=== PATIENT | male | born 1980 | race Caucasian/White ===

== ENCOUNTER 2020-11-22 09:39 | Emergency (ER) | payer MEDICAID ==
[2020-11-22 09:44] VITALS: BP 147/75; PULSE 63; TEMP 98.3
--- NOTE | 2020-11-22 10:16 | ED ---
General Adult HPI - General Chief complaint: Upper Respiratory Infection Stated complaint: LOST OF TASTE AND SMELL Time Seen by Provider: 11/22/20 10:04 Source: patient Mode of arrival: ambulatory Limitations: no limitations - History of Present Illness Initial comments: Patient is a 40-year-old male without any significant past medical history who presents to the emergency room for a chief complaint of "feeling crummy." Patient states that since yesterday he just hasn't felt well since yesterday. He also started to notice that his taste and smell has been decreased. Patient states his is and is a nurse and is at the hospital for an ultrasound. Patient states that his wanted him to be evaluated in the ER since they were already here. He wants to be tested for Covid. He admits to the runny nose, as well as fatigue. He denies cough or shortness of breath. Patient has no other complaints at this time including shortness of breath, chest pain, abdominal pain, nausea or vomiting, headache, or visual changes. - Related Data Home Medications Medication Instructions Recorded Confirmed No Known Home Medications 11/22/20 11/22/20 Allergies Allergy/AdvReac Type Severity Reaction Status Date / Time No Known Allergies Allergy Verified 11/22/20 11:16 Review of Systems ROS Statement: Those systems with pertinent positive or pertinent negative responses have been documented in the HPI. ROS Other: All systems not noted in ROS Statement are negative. Past Medical History Past Medical History: No Reported History History of Any Multi-Drug Resistant Organisms: None Reported Past Surgical History: No Surgical Hx Reported Past Psychological History: No Psychological Hx Reported Smoking Status: Never smoker Past Alcohol Use History: Occasional Past Drug Use History: Marijuana General Exam Limitations: no limitations General appearance: alert, in no apparent distress Head exam: Present: atraumatic, normocephalic, normal inspection Eye exam: Present: normal appearance, PERRL, EOMI. Absent: scleral icterus, conjunctival injection, periorbital swelling ENT exam: Present: normal exam, mucous membranes moist Neck exam: Present: normal inspection, full ROM. Absent: tenderness, meningismus, lymphadenopathy Respiratory exam: Present: normal lung sounds bilaterally. Absent: respiratory distress, wheezes, rales, rhonchi, stridor Cardiovascular Exam: Present: regular rate, normal rhythm, normal heart sounds. Absent: systolic murmur, diastolic murmur, rubs, gallop, clicks GI/Abdominal exam: Present: soft, normal bowel sounds. Absent: distended, tenderness, guarding, rebound, rigid Neurological exam: Present: alert Course Vital Signs 11/22/20 11/22/20 09:41 10:30 Temperature 98.3 F Pulse Rate 63 Respiratory 20 18 Rate Blood Pressure 147/75 O2 Sat by Pulse 99 Oximetry Medical Decision Making - Medical Decision Making Patient is cold and positive. Vitals are stable. Oxygen saturation 99%.He can shortness of breath. Patient refused chest x-ray stating he does not have a cough and does not want this performed. At this time I did offer to wait patient to see if he meets for the BMI criteria however he does not want the antibody treatment. At this time vision and be discharged home in stable condition. He should return to the emergency room for any worsening symptoms. I did discuss quarantine. - Lab Data Lab Results 11/22/20 Range/Units 10:29 Coronavirus (PCR) Detected A (Not Detectd) Disposition Clinical Impression: COVID-19 Disposition: HOME SELF-CARE Condition: Good Instructions (If sedation given, give patient instructions): Coronavirus Disease 2019 (COVID-19) Additional Instructions: Please quarantine for at least 10 days as long as symptoms are improving and he no longer have fevers. Follow-up with your doctor. Take [id number] vitamins. Drink plenty of fluids. Take Motrin and Tylenol for fever. Return to the emergency room for any worsening symptoms including worsening shortness of breath. Is patient prescribed a controlled substance at d/c from ED?: No Referrals: Mario Ybarra [Primary Care Provider] - 1-2 days Time of Disposition: 11:28
[2020-11-22 10:31] VITALS: RESP 18
== END 2020-11-22 11:48 | disposition home or self-care (01) ==
LOC: EC 09:39
DX: U07.1 COVID-19 (principal)
CPT/HCPCS: 87635; 99283

== ENCOUNTER → 2024-01-07 | Outpatient (CLI) | payer BC ==
--- NOTE | 2024-01-07 09:15 | US ---
EXAMINATION TYPE: US liver DATE OF EXAM: 01/07/2024 COMPARISON: NONE CLINICAL INDICATION: Male, 43 years old with history of R74.8 ABNORMAL LEVELS OF OTHER SERUM ENZYMES; LFTs TECHNIQUE: Multiple sonographic images of the right upper quadrant are obtained. FINDINGS: EXAM MEASUREMENTS: bryant Length: 17.7 cm Gallbladder Wall: 0.2 cm CBD: 0.4 cm Right Kidney: 11.2x7.9x6.5 cm MARBLE RUBBER NOTES: Pancreas: Tail obscured by overlying bowel gas Liver: increased size, echogenicity, and attenuation. Area of focal fatty sparring adjacent to GB Gallbladder: wnl Evidence for sonographic Prince's sign: No CBD: wnl Right Kidney: No hydronephrosis or masses seen exam slightly limited by bowel gas and body habitus IMPRESSION: 1. No evidence for acute process. 2. Hepatic steatosis with focal fatty sparing.
== END | disposition home or self-care (01) ==
LOC: RADUSWWP 06:56
PROVIDERS: ATTEND Family Medicine
DX: K76.0 Fatty (change of) liver, not elsewhere classified (principal); R74.8 Abnormal levels of other serum enzymes
CPT/HCPCS: 76705

== ENCOUNTER 2024-02-02 19:15 | Emergency (ER) | payer BC ==
[2024-02-02 20:36] VITALS: RESP 18
[2024-02-02] MEDS: ACETAMINOPHEN TAB 500 MG TAB PO STA (21:22)
[2024-02-02] MEDS: KETOROLAC 15 MG/ML 1 ML VIAL IVP STA (21:23)
--- NOTE | 2024-02-02 22:14 | ED ---
General Adult HPI - General Chief complaint: Wound/Laceration Stated complaint: Fall, laceration on R cheek Time Seen by Provider: 02/02/24 19:31 Source: patient, RN notes reviewed Mode of arrival: ambulatory Limitations: no limitations - History of Present Illness Initial comments: 44-year-old male presenting to the ED with complaints of laceration. Patient states he was going up the wooden stairs when he tripped on the last stair causing him to fall forward and hit the paneling on the wall with his right cheek. There is no LOC at this time. Patient is not on blood thinners or baby aspirin. No other injuries at this time. No other complaints. Tetanus status up-to-date. - Related Data Home Medications Medication Instructions Recorded Confirmed No Known Home Medications 11/22/20 11/22/20 Allergies Allergy/AdvReac Type Severity Reaction Status Date / Time No Known Allergies Allergy Verified 02/02/24 19:20 Review of Systems ROS Statement: Those systems with pertinent positive or pertinent negative responses have been documented in the HPI. ROS Other: All systems not noted in ROS Statement are negative. Past Medical History Past Medical History: No Reported History Additional Past Medical History / Comment(s): gout History of Any Multi-Drug Resistant Organisms: None Reported Past Surgical History: No Surgical Hx Reported Past Psychological History: No Psychological Hx Reported Smoking Status: Never smoker Past Alcohol Use History: Occasional Past Drug Use History: Marijuana General Exam Limitations: no limitations General appearance: alert, in no apparent distress Head exam: Present: other (Ecchymosis over the right cheek with approximately 4 cm laceration.) Eye exam: Present: normal appearance Neck exam: Present: normal inspection, other (No midline cervical spinal tenderness to palpation.) Respiratory exam: Present: normal lung sounds bilaterally Cardiovascular Exam: Present: regular rate GI/Abdominal exam: Present: soft Extremities exam: Present: normal inspection Back exam: Present: normal inspection Neurological exam: Present: alert, oriented X3 Skin exam: Present: warm, dry Course Vital Signs 02/02/24 19:18 Temperature 98.5 F Pulse Rate 79 Respiratory 18 Rate Blood Pressure 179/92 O2 Sat by Pulse 96 Oximetry Procedures - Laceration Laceration #1 Site: face Size (cm): 4 Description: linear Depth: simple, single layer Anesthetic Used: lidocaine 1%, with epi Anesthesia Technique: local infiltration Amount (mls): 3 Pre-repair: wound explored, irrigated extensively, deep structures intact Type of Sutures: nylon Size of Sutures: 5-0 Number of Sutures: 11 Technique: simple, interrupted Patient Tolerated Procedure: well, no complications Medical Decision Making - Medical Decision Making Was pt. sent in by a medical professional or institution (, RADHA, TAILOR APPRENTICE, urgent care, hospital, or residential...) When possible be specific @ -No Did you speak to anyone other than the patient for history (EMS, parent, family, police, friend...)? What history was obtained from this source @ -No Did you review nursing and triage notes (agree or disagree)? Why? @ -I reviewed and agree with nursing and triage notes Were old charts reviewed (outside hosp., previous admission, EMS record, old EKG, old radiological studies, urgent care reports/EKG's, residential records)? Report findings @ -No old charts were reviewed Differential Diagnosis (chest pain, altered mental status, abdominal pain women, abdominal pain men, vaginal bleeding, weakness, fever, dyspnea, syncope, headache, dizziness, GI bleed, back pain, seizure, CVA, palpatations, mental health, musculoskeletal)? @ -Differential Musculoskeletal Muscular strain, contusion, ligament sprain, fracture, arthritis, septic arthritis, bursitis, cellulitis, muscle spasm, nerve compression, DVT, arterial occlusion, herpes zoster, electrolyte abnormality, tumor.... This is not meant to be in all inclusive list EKG interpreted by me (3pts min.). @ -None X-rays interpreted by me (1pt min.). @ -None done CT interpreted by me (1pt min.). @ -None done U/S interpreted by me (1pt. min.). @ -None done What testing was considered but not performed or refused? (CT, X-rays, U/S, labs)? Why? @ -None What meds were considered but not given or refused? Why? @ -None Did you discuss the management of the patient with other professionals (professionals i.e. , RADHA, TAILOR APPRENTICE, lab, RT, psych nurse, social insurance analyst, construction coordinator, teacher, house officer, telephonic nurse case manager)? Give summary @ -No Was smoking cessation discussed for >3mins.? @ -No Was critical care preformed (if so, how long)? @ -No Were there social determinants of health that impacted care today? How? (Homelessness, low income, unemployed, alcoholism, drug addiction, transportation, low edu. Level, literacy, decrease access to med. care, fci, rehab)? @ -No Was there de-escalation of care discussed even if they declined (Discuss DNR or withdrawal of care, Hospice)? DNR status @ -No What co-morbidities impacted this encounter? (DM, HTN, Smoking, COPD, CAD, Cancer, CVA, ARF, Chemo, Hep., AIDS, mental health diagnosis, sleep apnea, morbid obesity)? @ -None Was patient admitted / discharged? Hospital course, mention meds given and route, prescriptions, significant lab abnormalities, going to OR and other pertinent info. @ -Discharge 44-year-old male presenting to the ED with a chief complaint of laceration to his right cheek after tripping and falling forward hitting his right cheek on paneling on the wall. No LOC. Not on blood thinners. Denies headache. No pendleton signs. Laceration was repaired. For further details please see procedure note. Tetanus up-to-date. Discharged home in stable condition. Discussed return precautions with patient and his who verbalized agreement. Undiagnosed new problem with uncertain prognosis? @ -No Drug Therapy requiring intensive monitoring for toxicity (Heparin, Nitro, Insulin, Cardizem)? @ -No Were any procedures done? @ -No Diagnosis/symptom? @ -Laceration Acute, or Chronic, or Acute on Chronic? @ -Acute Uncomplicated (without systemic symptoms) or Complicated (systemic symptoms)? @ -Uncomplicated Side effects of treatment? @ -No Exacerbation, Progression, or Severe Exacerbation? @ -No Poses a threat to life or bodily function? How? (Chest pain, [place], NH, pneumonia, PE, COPD, DKA, ARF, appy, cholecystitis, CVA, Diverticulitis, Homicidal, Suicidal, threat to staff... and all critical care pts) @ -No Disposition Clinical Impression: Laceration Disposition: HOME SELF-CARE Condition: Good Instructions (If sedation given, give patient instructions): Care For Your Stitches (ED) Additional Instructions: Please return to the Emergency Department if symptoms worsen or any other concerns. Please return in 3 to 5 days for suture removal. Follow-up with your primary care provider. Is patient prescribed a controlled substance at d/c from ED?: No Referrals: Herber Prieto DO [Primary Care Provider] - 1-2 days Time of Disposition: 22:18
[2024-02-02 23:10] VITALS: BP 128/70; PULSE 75; TEMP 97.5
== END 2024-02-02 22:25 | disposition home or self-care (01) ==
LOC: EC 19:15
DX: S01.411A Laceration without foreign body of right cheek and temporomandibular area, initial encounter (principal); W01.198A Fall on same level from slipping, tripping and stumbling with subsequent striking against other object, initial encounter
CPT/HCPCS: 12013; 99283; 96372; J1885